=== PATIENT | female | born 1965 ===

== ENCOUNTER 2019-07-02 11:08 | Outpatient (CLI) | payer OTHER ==
[2019-07-02] MEDS ORDERED: WELLBUTRIN SR100 MG PO (12:00)
[2019-07-02] MEDS ORDERED: EFFEXOR XR150 MG PO (12:00)
[2019-07-02] MEDS ORDERED: AMBIEN5 MG PO (12:00)
[2019-07-02] MEDS ORDERED: COZAAR25 MG PO (12:01)
[2019-07-02] MEDS ORDERED: LEVOTHYROXINE25 MCG PO (12:01)
[2019-07-02] MEDS ORDERED: SYNTHROID75 MCG PO (12:01)
[2019-07-02] MEDS ORDERED: CLONAZEPAM1 MG PO (12:01)
== END 2019-07-02 11:27 | disposition home or self-care (01) ==
LOC: RAD 11:08
DX: I10 Essential (primary) hypertension (principal)

== ENCOUNTER 2019-07-05 05:33 | Day surgery (SDC) | payer OTHER ==
[~2019-07-05 05:33] MED LIST: AMBIEN5 MG PO; CLONAZEPAM1 MG PO; COZAAR25 MG PO; EFFEXOR XR150 MG PO; LEVOTHYROXINE25 MCG PO; SYNTHROID75 MCG PO; WELLBUTRIN SR100 MG PO
== END 2019-07-05 14:00 | disposition home or self-care (01) ==
LOC: CIR.AMB 05:33 → ADM 09:00 → CIR.AMB 14:00
DX: M75.111 Incomplete rotator cuff tear or rupture of right shoulder, not specified as traumatic (principal); M75.21 Bicipital tendinitis, right shoulder